=== PATIENT | male | born 1990 | race American Indian/Alaskan Native ===

== ENCOUNTER 2021-11-15 19:31 | Emergency (ER) | payer SELFPAY ==
--- NOTE | 2021-11-16 01:53 | Emergency Department Report ---
ED General Adult HPI - General Chief complaint: Sore Throat Stated complaint: STREP THROAT Time Seen by Provider: 11/16/21 01:32 Source: patient Mode of arrival: Ambulatory Limitations: No Limitations - History of Present Illness Initial comments: 31-year-old male no significant past medical history reports to the ER with complaints of sore throat for about 4 days now with no relief from [id number] medications. Patient reports that headache and pain with swallowing. Denies cough denies fever. Patient reports he has been able to eat soup mostly due to the pain. Patient also reports neck pain. Patient reports no other acute symptoms at this time. - Related Data Home Medications Medication Instructions Recorded Confirmed Last Taken Clindamycin [Clindamycin Oral] 450 mg PO QID 07/06/13 07/06/13 07/06/13 Ibuprofen [Motrin] 800 mg PO TID PRN 07/06/13 07/06/13 07/06/13 traMADoL [Ultram] 50 mg PO Q4HR PRN 07/06/13 07/06/13 Unknown Previous Rx's Medication Instructions Recorded Last Taken Type Amoxicillin [Trimox CAP] 500 mg PO Q8H #30 capsule 05/27/13 Unknown Rx HYDROcodone/APAP 10-325 [[place] 1 each PO Q6HR PRN #20 tablet 05/27/13 Unknown Rx 10-325 mg TAB] HYDROcodone/ACETAMINOPHEN [[place] 1 each PO Q6HR #20 tablet 07/06/13 Unknown Rx 5/325 Tablet] Loratadine (Nf) [Claritin] 10 mg PO DAILY #30 tablet 07/06/13 Unknown Rx Acetaminophen/Codeine [Tylenol 1 tab PO Q6H PRN 2 Days #6 tab 11/16/21 Unknown Rx /Codeine # 3 tab] Amoxicillin [Trimox CAP] 500 mg PO BID 10 Days #20 capsule 11/16/21 Unknown Rx Ibuprofen [Motrin] 600 mg PO Q8H PRN 7 Days #21 tablet 11/16/21 Unknown Rx predniSONE [Deltasone] 40 mg PO QDAY 5 Days #10 tab 11/16/21 Unknown Rx Allergies Allergy/AdvReac Type Severity Reaction Status Date / Time No Known Allergies Allergy Verified 05/27/13 23:31 ED Review of Systems ROS: Stated complaint: STREP THROAT Other details as noted in HPI Comment: All other systems reviewed and negative ENT: throat pain ED Past Medical Hx - Past Medical History Previous Medical History?: Yes Additional medical history: HIV positive - Social History Smoking Status: Current Some Day Smoker Substance Use Type: Alcohol - Medications Home Medications: Home Medications Medication Instructions Recorded Confirmed Last Taken Type Amoxicillin [Trimox CAP] 500 mg PO Q8H #30 capsule 05/27/13 07/06/13 Unknown Rx HYDROcodone/APAP 10-325 [[place] 1 each PO Q6HR PRN #20 tablet 05/27/13 07/06/13 Unknown Rx 10-325 mg TAB] Clindamycin [Clindamycin Oral] 450 mg PO QID 07/06/13 07/06/13 07/06/13 History HYDROcodone/ACETAMINOPHEN [[place] 1 each PO Q6HR #20 tablet 07/06/13 Unknown Rx 5/325 Tablet] Ibuprofen [Motrin] 800 mg PO TID PRN 07/06/13 07/06/13 07/06/13 History Loratadine (Nf) [Claritin] 10 mg PO DAILY #30 tablet 07/06/13 Unknown Rx traMADoL [Ultram] 50 mg PO Q4HR PRN 07/06/13 07/06/13 Unknown History Acetaminophen/Codeine [Tylenol 1 tab PO Q6H PRN 2 Days #6 tab 11/16/21 Unknown Rx /Codeine # 3 tab] Amoxicillin [Trimox CAP] 500 mg PO BID 10 Days #20 capsule 11/16/21 Unknown Rx Ibuprofen [Motrin] 600 mg PO Q8H PRN 7 Days #21 tablet 11/16/21 Unknown Rx predniSONE [Deltasone] 40 mg PO QDAY 5 Days #10 tab 11/16/21 Unknown Rx ED Physical Exam - General Limitations: No Limitations General appearance: alert, in no apparent distress - Head Head exam: Present: atraumatic, normocephalic - Eye Eye exam: Present: normal appearance - ENT ENT exam: Present: mucous membranes moist - Expanded ENT Exam Expanded Mouth exam: Absent: drooling, trismus, muffled voice Throat exam: Positive: tonsillar erythema, tonsillar exudate, other (Patient does have cervical lymph node tenderness right side greater than left) - Neck Neck exam: Present: normal inspection - Respiratory Respiratory exam: Present: normal lung sounds bilaterally. Absent: respiratory distress - Cardiovascular Cardiovascular Exam: Present: regular rate, normal rhythm. Absent: systolic murmur, diastolic murmur, rubs, gallop - GI/Abdominal GI/Abdominal exam: Present: soft, normal bowel sounds - Rectal Rectal exam: Present: deferred - Extremities Exam Extremities exam: Present: normal inspection - Back Exam Back exam: Present: normal inspection - Neurological Exam Neurological exam: Present: alert, oriented X3 - Psychiatric Psychiatric exam: Present: normal affect, normal mood - Skin Skin exam: Present: warm, dry, intact, normal color. Absent: rash ED Course Vital Signs 11/15/21 11/16/21 20:03 02:15 Temperature 98.8 F Pulse Rate 93 H 87 Respiratory 18 12 Rate Blood Pressure 117/79 Blood Pressure 123/82 [Left] O2 Sat by Pulse 100 99 Oximetry ED Medical Decision Making - Medical Decision Making 31-year-old male reports to the ER with complaints of a sore throat for 4 days. Started when he was down to [facility]. Patient denies rash, no cough, no fever, no chills. Patient does report headache and pain with swallowing. On physical exam there is exudate on the tonsils bilaterally. Right side greater than left. Patient does have cervical lymph node tenderness right side greater than left. Patient to be started on amoxicillin 500 twice daily along with a short course of steroids and anti-inflammatory and pain medicine. Patient has been treated based on clinical presentation. Patient agrees with plan of care and verbalizes understanding. Vital Signs 11/15/21 20:03 Temperature 98.8 F Pulse Rate 93 H Respiratory 18 Rate Blood Pressure 117/79 O2 Sat by Pulse 100 Oximetry Vital Signs 11/15/21 11/16/21 20:03 02:15 Temperature 98.8 F Pulse Rate 93 H 87 Respiratory 18 12 Rate Blood Pressure 117/79 Blood Pressure 123/82 [Left] O2 Sat by Pulse 100 99 Oximetry Critical care attestation.: If time is entered above; I have spent that time in minutes in the direct care of this critically ill patient, excluding procedure time. ED Disposition Clinical Impression: Acute pharyngitis Qualifiers: Pharyngitis/tonsillitis etiology: unspecified etiology Qualified Code(s): J02.9 - Acute pharyngitis, unspecified Disposition: 01 HOME / SELF CARE / HOMELESS Is pt being admited?: No Does the pt Need Aspirin: No Condition: Stable Instructions: Pharyngitis, Strep Throat, Adult, [id number] Prescriptions: predniSONE [Deltasone] 40 mg PO QDAY 5 Days #10 tab Ibuprofen [Motrin] 600 mg PO Q8H PRN 7 Days #21 tablet PRN Reason: Pain Amoxicillin [Trimox CAP] 500 mg PO BID 10 Days #20 capsule Acetaminophen/Codeine [Tylenol /Codeine # 3 tab] 1 tab PO Q6H PRN 2 Days #6 tab PRN Reason: Pain , Severe (7-10) Referrals: LAURIE NOVOA MD [Primary Care Provider] - 3-5 Days
[2021-11-16] MEDS: ACETAMINOPHEN W/CODEINE 300-30 MG TAB PO ONE (01:57)
[2021-11-16] MEDS: predniSONE 20 MG TAB PO ONE (01:57)
[2021-11-16] MEDS: IBUPROFEN 600 MG TAB PO ONE (01:57)
[2021-11-16] MEDS: AMOXICILLIN 500 MG CAP PO ONE (01:57)
[2021-11-16] MEDS: HYDROcodone/ACETAMINOPHEN 5-325 MG TAB PO ONE (01:59)
[2021-11-16 02:15] VITALS: BP 123/82
== END 2021-11-16 02:16 | disposition home or self-care (01) ==
LOC: ED 19:31
DX: J02.9 Acute pharyngitis, unspecified (principal); F17.200 Nicotine dependence, unspecified, uncomplicated; Z79.899 Other long term (current) drug therapy
CPT/HCPCS: 99282

== ENCOUNTER 2022-01-15 12:32 | Emergency (ER) | payer SELFPAY ==
[2022-01-15 13:57] VITALS: BP 128/77
--- NOTE | 2022-01-15 18:32 | Emergency Department Report ---
ED Extremity Problem HPI - General Chief complaint: Extremity Injury, Lower Stated complaint: SSPRAIN FOOT Source: patient Mode of arrival: Ambulatory Limitations: No Limitations - History of Present Illness Initial comments: 31-year-old male presents to the ED complaining pain to his third middle toe times several months. Patient states he initially thought that he had an ingr own toenail and has been treating it accordingly . Patient states that he injured his toe at work and never seek treatment to have it evaluated. Patient states that the increase in edema and redness continued to get worse. He states that he has to wear a Band-Aid to relieve pain. Patient able to move digit without any difficulty. There is no obvious deformity noted. There is no obvious distracting injury noted. Patient is ambulatory MD Complaint: extremity swelling - Related Data Home Medications Medication Instructions Recorded Confirmed Last Taken Clindamycin [Clindamycin Oral] 450 mg PO QID 07/06/13 07/06/13 07/06/13 Ibuprofen [Motrin] 800 mg PO TID PRN 07/06/13 07/06/13 07/06/13 traMADoL [Ultram] 50 mg PO Q4HR PRN 07/06/13 07/06/13 Unknown Previous Rx's Medication Instructions Recorded Last Taken Type Amoxicillin [Trimox CAP] 500 mg PO Q8H #30 capsule 05/27/13 Unknown Rx HYDROcodone/APAP 10-325 [[place] 1 each PO Q6HR PRN #20 tablet 05/27/13 Unknown Rx 10-325 mg TAB] HYDROcodone/ACETAMINOPHEN [[place] 1 each PO Q6HR #20 tablet 07/06/13 Unknown Rx 5/325 Tablet] Loratadine (Nf) [Claritin] 10 mg PO DAILY #30 tablet 07/06/13 Unknown Rx Acetaminophen/Codeine [Tylenol 1 tab PO Q6H PRN 2 Days #6 tab 11/16/21 Unknown Rx /Codeine # 3 tab] Amoxicillin [Trimox CAP] 500 mg PO BID 10 Days #20 capsule 11/16/21 Unknown Rx Ibuprofen [Motrin] 600 mg PO Q8H PRN 7 Days #21 tablet 11/16/21 Unknown Rx predniSONE [Deltasone] 40 mg PO QDAY 5 Days #10 tab 11/16/21 Unknown Rx Ketorolac [Toradol] 10 mg PO Q6H PRN 5 Days #20 tab 01/15/22 Unknown Rx cephALEXin [Keflex] 500 mg PO Q12HR 10 Days #20 cap 01/15/22 Unknown Rx Allergies Allergy/AdvReac Type Severity Reaction Status Date / Time No Known Allergies Allergy Verified 01/15/22 13:57 ED Review of Systems ROS: Stated complaint: SSPRAIN FOOT Other details as noted in HPI Constitutional: denies: chills, fever Eyes: denies: eye pain, eye discharge, vision change ENT: denies: ear pain, throat pain Respiratory: denies: cough, shortness of breath, wheezing Cardiovascular: denies: chest pain, palpitations Endocrine: no symptoms reported Gastrointestinal: denies: abdominal pain, nausea, diarrhea Genitourinary: denies: urgency, dysuria Musculoskeletal: denies: back pain, joint swelling, arthralgia Skin: denies: rash, lesions Neurological: denies: headache, weakness, paresthesias Psychiatric: denies: anxiety, depression Hematological/Lymphatic: denies: easy bleeding, easy bruising ED Past Medical Hx - Past Medical History Previous Medical History?: Yes Hx HIV: Yes Additional medical history: HIV positive - Social History Smoking Status: Current Some Day Smoker Substance Use Type: Alcohol - Medications Home Medications: Home Medications Medication Instructions Recorded Confirmed Last Taken Type Amoxicillin [Trimox CAP] 500 mg PO Q8H #30 capsule 05/27/13 07/06/13 Unknown Rx HYDROcodone/APAP 10-325 [[place] 1 each PO Q6HR PRN #20 tablet 05/27/13 07/06/13 Unknown Rx 10-325 mg TAB] Clindamycin [Clindamycin Oral] 450 mg PO QID 07/06/13 07/06/13 07/06/13 History HYDROcodone/ACETAMINOPHEN [[place] 1 each PO Q6HR #20 tablet 07/06/13 Unknown Rx 5/325 Tablet] Ibuprofen [Motrin] 800 mg PO TID PRN 07/06/13 07/06/13 07/06/13 History Loratadine (Nf) [Claritin] 10 mg PO DAILY #30 tablet 07/06/13 Unknown Rx traMADoL [Ultram] 50 mg PO Q4HR PRN 07/06/13 07/06/13 Unknown History Acetaminophen/Codeine [Tylenol 1 tab PO Q6H PRN 2 Days #6 tab 11/16/21 Unknown Rx /Codeine # 3 tab] Amoxicillin [Trimox CAP] 500 mg PO BID 10 Days #20 capsule 11/16/21 Unknown Rx Ibuprofen [Motrin] 600 mg PO Q8H PRN 7 Days #21 tablet 11/16/21 Unknown Rx predniSONE [Deltasone] 40 mg PO QDAY 5 Days #10 tab 11/16/21 Unknown Rx Ketorolac [Toradol] 10 mg PO Q6H PRN 5 Days #20 tab 01/15/22 Unknown Rx cephALEXin [Keflex] 500 mg PO Q12HR 10 Days #20 cap 01/15/22 Unknown Rx ED Physical Exam - General Limitations: No Limitations General appearance: alert, in no apparent distress - Head Head exam: Present: atraumatic, normocephalic - Eye Eye exam: Present: normal appearance - ENT ENT exam: Present: mucous membranes moist - Neck Neck exam: Present: normal inspection - Respiratory Respiratory exam: Present: normal lung sounds bilaterally. Absent: respiratory distress - Cardiovascular Cardiovascular Exam: Present: regular rate, normal rhythm. Absent: systolic murmur, diastolic murmur, rubs, gallop - GI/Abdominal GI/Abdominal exam: Present: soft, normal bowel sounds - Rectal Rectal exam: Present: deferred - Extremities Exam Extremities exam: Present: normal inspection - Back Exam Back exam: Present: normal inspection - Neurological Exam Neurological exam: Present: alert, oriented X3 - Psychiatric Psychiatric exam: Present: normal affect, normal mood - Skin Skin exam: Present: warm, dry, intact, normal color. Absent: rash ED Course Vital Signs 01/15/22 13:54 Temperature 98.3 F Pulse Rate 63 Respiratory 16 Rate Blood Pressure 128/77 O2 Sat by Pulse 100 Oximetry ED Medical Decision Making - Radiology Data [facility] [address] [place] [address] XRay Report Signed Patient: SHIMA CARTAGENA MR #: [id number] : 1990 Acct:[id number] Age/Sex: 31 / M ADM Date: 01/15/22 Loc: ED Attending Dr: Ordering Physician: EWA ROBLES Date of Service: 01/15/22 Procedure(s): XR foot 3+V RT Accession Number(s): [id number] cc: EWA ROBLES Fluoro Time In Minutes: RIGHT FOOT 4 VIEW(S) INDICATION / CLINICAL INFORMATION: toe pain COMPARISON: None available. FINDINGS: BONES / JOINT(S): No acute fracture or subluxation. No significant arthritis. SOFT TISSUES: No significant abnormality. ADDITIONAL FINDINGS: None. Signer Name: Aaron Carpio DO Signed: 01/15/2022 6:32 PM Workstation Name: [email or web address] Transcribed By: LOGAN Dictated By: AARON CARPIO DO Electronically Authenticated By: AARON CARPIO DO Signed Date/Time: 01/15/221831 DD/ 30 TD/TT: - Medical Decision Making 31-year-old male presents to the ED complaining pain to his third middle toe times several months. Patient states he initially thought that he had an ingrown toenail and has been treating it accordingly . Patient states that he injured his toe at work and never seek treatment to have it evaluated. Patient states that the increase in edema and redness continued to get worse. He states that he has to wear a Band-Aid to relieve pain. Patient able to move digit without any difficulty. There is no obvious deformity noted. There is no obvious distracting injury noted. Patient is ambulatory. Physical examination patient has erythema with mild swelling noted at middle phalanx. Rechecked the patient is resting quietly , comfortable and feeling better. I discussed the results of diagnostic study, my clinical impression and the plan for further treatment with the patient. Patient agrees with plan and discharge at this present time. All question addressed. I have given the patient instruction regarding a diagnosis ,expectation ,follow- up and return precaution. I explained to the patient that emergent condition may arise and to return to the ED for new worsen and any new persisting condition. I have explained the importance of following up with the primary care physician or referral physician listed below has instructed. The patient verbalized understanding of discharge instruction. Critical care attestation.: If time is entered above; I have spent that time in minutes in the direct care of this critically ill patient, excluding procedure time. ED Disposition Clinical Impression: Cellulitis Qualifiers: Site of cellulitis: extremity Site of cellulitis of extremity: toe Laterality: left Qualified Code(s): L03.032 - Cellulitis of left toe Disposition: HOME / SELF CARE / HOMELESS Is pt being admited?: No Does the pt Need Aspirin: No Condition: Stable Instructions: Cellulitis, Adult, [id number] Additional Instructions: Take medication as prescribed Return to ED for any worsening symptom Prescriptions: cephALEXin [Keflex] 500 mg PO Q12HR 10 Days #20 cap Ketorolac [Toradol] 10 mg PO Q6H PRN 5 Days #20 tab PRN Reason: Pain Referrals: PRIMARY CARE, [Primary Care Provider] - 3-5 Days [facility] [Provider Group] - 3-5 Days Forms: Work/School Release Form(ED) Time of Disposition: 18:46
--- NOTE | 2022-01-15 18:36 | XRay Report ---
RIGHT FOOT 4 VIEW(S) INDICATION / CLINICAL INFORMATION: toe pain COMPARISON: None available. FINDINGS: BONES / JOINT(S): No acute fracture or subluxation. No significant arthritis. SOFT TISSUES: No significant abnormality. ADDITIONAL FINDINGS: None. Signer Name: Aaron Carpio DO Signed: 01/15/2022 6:32 PM Workstation Name: [id number]
== END 2022-01-16 03:20 | disposition home or self-care (01) ==
LOC: ED 12:32
DX: L03.032 Cellulitis of left toe (principal); F17.200 Nicotine dependence, unspecified, uncomplicated; F10.20 Alcohol dependence, uncomplicated
CPT/HCPCS: 99283